=== PATIENT | female | born 1960 | race African-American/Black ===

== ENCOUNTER 2019-11-26 16:23 | Emergency (ER) | payer OTHER, BC ==
[2019-11-26 17:02] LABS: BASOPHILS % (AUTO) 0.3 %; EOSINOPHILS # (AUTO) 0.2 10^3/uL (0.0-0.7); EOSINOPHILS % (AUTO) 2.5 %; HGB - HEMOGLOBIN 12.8 g/dL (12.0-16.0); LYMPHOCYTES # (AUTO) 2.7 10^3/uL (1.5-3.5); LYMPHOCYTES % (AUTO) 37.3 %; MEAN CORPUSCULAR HEMOGLOBIN 25.9 pg (27.0-31.0); MEAN CORPUSCULAR HGB CONC 31.1 g/dL (32.0-36.0); MEAN CORPUSCULAR VOLUME 83.2 fL (81.0-99.0); MEAN PLATELET VOLUME 12.7 fL (7.9-10.8); MONOCYTES # (AUTO) 0.6 10^3/uL (0.0-1.0); MONOCYTES % (AUTO) 8.3 %; NEUTROPHILS # (AUTO) 3.7 10^3/uL (1.5-6.6); NEUTROPHILS % (AUTO) 51.5 %; PLT - PLATELET COUNT 186 10^3/uL (130-450); RED BLOOD COUNT 4.94 10^6/uL (4.20-5.40); RED CELL DISTRIBUTION WIDTH 15.3 % (12.0-15.0); WHITE BLOOD COUNT 7.1 x10^3/uL (4.8-10.8)
--- NOTE | 2019-11-26 17:09 | ED Physician Documentation ---
History of Present Illness - Stated complaint Stated Complaint: FALL/RT ELBOW INJURY - Chief complaint Chief Complaint: General - History obtained from History obtained from: Patient (59-year-old woman with history of hypertension was in her usual state of health at work today and potentially had a syncopal episode. She was potentially unconscious for about a minute. It was not preceded by chest pain or trouble breathing. She feels completely fine now except has mild left rib pain and mild right elbow pain. 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: Fibroids : None HEENT: Chronic vision loss Psych: Depression Musculoskeletal: None Derm: None - Past Surgical History Past Surgical History: Yes - Present Medications Home Medications: Ambulatory Orders Medication Instructions Recorded Confirmed Levothyroxine [Synthroid] 50 mcg PO QDAC 11/20/12 02/27/14 Simvastatin [Zocor] 40 mg PO QPM 11/20/12 02/27/14 Bupropion HCl [Wellbutrin] 150 mg PO BID 02/27/14 02/27/14 NIFEdipine [Procardia] 30 mg PO QID 02/27/14 02/27/14 Hydrocodone/Acetaminophen 1 - 2 each PO Q6H PRN #14 tablet 11/26/19 [Hydrocodon-Acetaminophen 5-325] - Allergies Allergies/Adverse Reactions: Allergies Allergy/AdvReac Type Severity Reaction Status Date / Time No Known Drug Allergies Allergy Verified 11/20/12 20:09 - Social History Does the pt smoke?: No Smoking Status: Never smoker Does the pt drink ETOH?: No Does the pt have substance abuse?: No - Immunizations Immunizations are current?: Yes PD ED PE NORMAL - Vitals Vital signs reviewed: Yes - General General: Alert and oriented X 3, No acute distress - HEENT HEENT: PERRL, EOMI - Neck Neck: Supple, no meningeal sign, No bony TTP - Cardiac Cardiac: RRR, No murmur - Respiratory Respiratory: No respiratory distress, Clear bilaterally - Back Back: No CVA TTP, No spinal TTP - Derm Derm: Normal color, Warm and dry - Extremities Extremities: No edema, No calf tenderness / cord, Other (She is focally tender and swollen over the right olecranon with full range of motion.) - Neuro Neuro: Alert and oriented X 3, Normal speech Results - Vitals Vitals: Vital Signs - 24 hr 11/26/19 11/26/19 16:36 17:01 Temperature 36.6 C Heart Rate 60 60 Respiratory 16 14 Rate Blood Pressure 149/81 H 164/78 H O2 Saturation 97 99 Oxygen O2 Source Room air - EKG (time done) 1649 Rate: Rate (enter#) (52) Rhythm: NSR [place]: Normal Intervals: Normal MD QRS: Normal Ischemia: Non specific changes (Flat T waves kind of diffusely). No: ST elevation c/w ischemia, ST depression Computer interpretation: Agree with computer - Labs Labs: Laboratory Tests 11/26/19 11/26/19 11/26/19 16:53 16:53 16:53 WBC 7.1 RBC 4.94 Hgb 12.8 Hct 41.1 MCV 83.2 MCH 25.9 L MCHC 31.1 L RDW 15.3 H Plt Count 186 MPV 12.7 H Neut # (Auto) 3.7 Lymph # (Auto) 2.7 [place] # (Auto) 0.6 Eos # (Auto) 0.2 Baso # (Auto) 0.0 Absolute Nucleated RBC 0.00 Nucleated RBC % 0.0 Sodium 140 Potassium 3.6 Chloride 104 Carbon Dioxide 27 Anion Gap 9.0 BUN 13 Creatinine 0.8 Estimated GFR (MDRD) 90 Glucose 99 Calcium 9.6 Total Bilirubin 0.7 AST 20 ALT 20 Alkaline Phosphatase 73 Troponin I High Sens < 2.3 L Total Protein 8.0 Albumin 4.2 Globulin 3.8 Albumin/Globulin Ratio 1.1 Lipase 25 PD MEDICAL DECISION MAKING - ED course ED course: 59-year-old woman presents with potential syncopal episode although she does not think she blacked out. From a syncope standpoint her work-up was negative. Chest and rib x-ray interpreted contemporaneously by me was negative, right elbow x-ray interpreted contemporaneously by me was suggestive of a radial head fracture and she did have increasing pain in that area during her stay so I suspect it is real. She was counseled on this diagnosis. Departure - Departure Disposition: 01 Home, Self Care Clinical Impression: Syncope Qualifiers: Syncope type: unspecified Qualified Code(s): R55 - Syncope and collapse Chest wall contusion Qualifiers: Encounter type: initial encounter Laterality: left Qualified Code(s): S20.212A - Contusion of left front wall of thorax, initial encounter Right radial head fracture Qualifiers: Encounter type: initial encounter Fracture type: closed Fracture alignment: nondisplaced Qualified Code(s): S52.124A - Nondisplaced fracture of head of right radius, initial encounter for closed fracture Condition: Good Record reviewed to determine appropriate education?: Yes Instructions: ED Contusion Rib, ED Fainting Unkn Cause Follow-Up: [facility] [Provider Group] Prescriptions: Hydrocodone/Acetaminophen [Hydrocodon-Acetaminophen 5-325] 1 - 2 each PO Q6H PRN #14 tablet PRN Reason: pain Comments: For the elbow fracture, wear the sling as needed and follow-up with the orthopedic surgeons within the week. Return for new or worsening symptoms. Do not drink or drive while taking the prescription pain medication, when pain is mild you can just take Tylenol. Follow-up with your primary care physician as well, next available appointment. Forms: Activity restrictions
[2019-11-26 17:17] LABS: ALBUMIN 4.2 g/dL (3.2-5.5); ALBUMIN/GLOBULIN RATIO 1.1 (1.0-2.2); BILIRUBIN,TOTAL 0.7 mg/dL (0.2-1.0); CALCIUM 9.6 mg/dL (8.5-10.3); CREATININE 0.8 mg/dL (0.4-1.0)
--- NOTE | 2019-11-26 18:05 | XRAY Report ---
Reason: elbow inj Procedure Date: 11/26/2019 Accession Number: [id number] / [id number] Procedure: XR - Elbow 3 View RT CPT Code: Final Report FULL RESULT: EXAM: RIGHT ELBOW RADIOGRAPHY EXAM DATE: 11/26/2019 05:51 PM. CLINICAL HISTORY: Elbow injury. COMPARISON: None. TECHNIQUE: 3 views. FINDINGS: Bones: No acute displaced fracture. Questionable lucency in the radial head seen only on the oblique image without definite cortical disruption or displacement. Joints: Normal alignment. Small elbow joint effusion. Soft Tissues: Moderate soft tissue swelling overlies the olecranon process. IMPRESSION: 1. Lucency without cortical disruption or displacement of the radial head may be artifactual or due to a nondisplaced fracture. Recommend follow-up radiographs in 10-14 days to document the presence or absence of a healing fracture. Alternatively, CT may be diagnostic. 2. Normal alignment. 3. Small effusion. RADIA
--- NOTE | 2019-11-26 18:06 | XRAY Report ---
Reason: rib inj Procedure Date: 11/26/2019 Accession Number: [id number] / [id number] Procedure: XR - Ribs w/PA Chest LT CPT Code: Final Report FULL RESULT: EXAM: LEFT RIB RADIOGRAPHY EXAM DATE: 11/26/2019 05:49 PM. CLINICAL HISTORY: Rib inj. COMPARISON: None. TECHNIQUE: 1 view of the chest and 2 views of the ribs. FINDINGS: Bones: Normal. No fracture or bone lesion. Lungs: No focal opacities. No pneumothorax. No pleural effusions. Mediastinum: Heart and mediastinal contours are unremarkable. Other: None. IMPRESSION: Normal chest and rib radiography. RADIA
[2019-11-26] MEDS ORDERED: HYDROcod/ACETAM 5/325 MG TABLET PO STA (18:12)
[2019-11-26 18:26] VITALS: BP 164/61
== END 2019-11-26 18:34 | disposition home or self-care (01) ==
LOC: ED 16:23
DX: R55 Syncope and collapse (principal); S52.124A Nondisplaced fracture of head of right radius, initial encounter for closed fracture; S20.212A Contusion of left front wall of thorax, initial encounter; W18.30XA Fall on same level, unspecified, initial encounter; Y99.0 Civilian activity done for income or pay; I10 Essential (primary) hypertension
CPT/HCPCS: 36415; 71101; 73080; 80053; 83690; 84484; 85025; 93005; 99284; A9270; 1040M

== ENCOUNTER 2020-08-16 10:27 | Outpatient (CLI) | payer BC ==
[2020-08-16 11:05] VITALS: BP 130/80
--- NOTE | 2020-08-16 11:05 | SLEEP CARE CONSULTATION ---
Information from patient questionnaire entered by Susan Dan. I have reviewed and concur with the information entered by Susan Dan. This document represents the service I personally performed and the decisions made by me, Leodan Flores MD, [facility]. History of Present Illness Service Date and Time: 08/16/2020 1027 Reason for Visit: New patient, Previously diagnosed sleep apnea (mild - AHI - 5.0 in 2015), sleep apnea on CPAP therapy, Re-establish care Chief Complaint: reports: Unrefreshed sleep, Other (breathing) Date of Onset: 6 months Usual bedtime: 10 pm Time it takes to fall asleep: 60 minutes or more Snores at night: Yes Observed to quit breathing while asleep: Yes Sleeps alone due to snoring: No Number of times waking at night: 4-6 Reasons for waking at night: reports: Choking, Snoring Toss, Turn, or Twitch while sleeping: Yes Recalls having dreams: Yes Usually gets out of bed at: 9-9:30 am Feels refreshed in the morning: No Morning headache: No Sleepy or fatigued during the day: Yes Ever fallen asleep while driving: No Takes day naps: No Dreams during day naps: No Prior sleep studies: Yes Year and Where: 2016 - [facility]; 2004 and 2007 - [facility] Type of Sleep Study: Polysomnography Additional HPI information: I had the pleasure of seeing Ms. Degroot today regarding obstructive sleep apnea-hypopnea. As you know, she is a 60 year old lady who was diagnosed with the sleep-disordered breathing here in 2014. The AHI was 5.0. She was prescribed a ResMed AirSense 10 autoCPAP device set at 6 12 cmH2O and later set to 8 10 cmH2O. She uses it almost every night and all night. The compliance data show usage in 151 out of the past 180 nights, averaging 6.2 hours a night. The > 4 hour compliance rate for the past 30 days is 73%. The residual AHI is 0.8 and average air leak is 0 L/minute. She wears a nasal mask. She got her supplies from [facility], but none in the past few years. She finds the treatment beneficial. - Parasomnia Symptoms Ever been unable to move upon waking from sleep: No Ever felt weak in the knees when startled or emotional: Yes Bothered by creepy, crawly, restless sensations in legs: No Problems with memory or concentration: Yes CPAP Compliance Data - Data Reviewed with Patient Average duration of nightly device use: 6 hr 9 min Compliance rate %: 73 (180 days) Current pressure setting (cmH2O): 8-10 Average residual AHI: 6.2 Subjective Initial [place] Sleepiness Scale score: 16 (in 2015) Current [place] Sleepiness Scale score: 12 Past Medical History Past Medical History: reports: Claustrophobia, Arthritis, Hypothyroidism, Anxiety Social History The patient's occupation is a [employer]. Patient is and lives in [place]. Have you smoked in the past 12 months: No Alcohol use: Yes Alcohol amount and frequency: every 3-4 weeks Caffeine use: Yes Caffeine amount and frequency: cup every morning Allergies and Home Medications Drug allergies reviewed: Yes Home medication list reviewed: Yes Review of Systems Cardiovascular: reports: palpitations Respiratory: reports: sputum production (?) Gastrointestinal: denies: heartburn, difficulty swallowing, nausea, vomitting, diarrhea, abdominal pain, other Urinary: denies: incontinence, frequency, urgency, impotence, other Neurological: denies: headaches, seizure, head trauma, disorientation, speech dysfunction, gait or balance problems, fainting or unconsciousness, other Psychiatric: reports: depression, mood disorder Ear/Nose/Throat: reports: wisdom teeth removed Endocrine: reports: thyroid disease, sluggishness Musculoskeletal: reports: joint pain Immunologic: denies: sneezing, rash, itching, allergies to food or environment, other Physical Exam Vital signs obtained and entered by: Leodan Flores M.D. Blood Pressure: 130/80 Cuff size: regular Heart Rate: 58 O2 Saturation: 96 Height: 5 ft 7 in Weight: 185 lb Body Mass Index: 29.0 BMI Classification: Overweight Impression and Plan IMPRESSION: 1. Obstructive Sleep Apnea-Hypopnea Syndrome, mild, as previously diagnosed. The patient has good CPAP compliance these past 5 years. The current pressure setting appears effective and comfortable. Because the CPAP is now older than the useful life of 5 years, I will order the patient a new one and make it an autoCPAP set between 8 and 10 cmH2O. Plan: 1. Prescription made for an autoCPAP, heated humidifier, and related supplies. 2. Try newer masks, e.g. Respironics DreamWear nasal cushion mask and ResMed N30i mask. 3. Avoid alcohol, sedative and muscle relaxant around bedtime. 4. Attempt to lose weight. 5. Return for follow up after one month on the new machine. Counseling Topics: Weight control Visit Type: In Office Time Spent with Patient (minutes): 15 Provider Statement: I spent 100% of the Face to Face Visit with the patient with greater than 50% spent counseling the patient and coordination of care.
== END 2020-08-16 10:28 | disposition home or self-care (01) ==
LOC: SC 10:27
PROVIDERS: ATTEND Internal Medicine Pulmonary Disease
DX: G47.33 Obstructive sleep apnea (adult) (pediatric) (principal); E66.3 Overweight; Z68.29 Body mass index [BMI] 29.0-29.9, adult
CPT/HCPCS: 99202; 99212

== ENCOUNTER 2020-11-25 20:38 | Emergency (ER) | payer BC, OTHER ==
[2020-11-25 21:01] LABS: BASOPHILS % (AUTO) 0.4 %; EOSINOPHILS # (AUTO) 0.2 10^3/uL (0.0-0.7); EOSINOPHILS % (AUTO) 1.9 %; HCT - HEMATOCRIT 41.7 % (37.0-47.0); LYMPHOCYTES # (AUTO) 3.7 10^3/uL (1.5-3.5); LYMPHOCYTES % (AUTO) 44.6 %; MEAN CORPUSCULAR HEMOGLOBIN 25.6 pg (27.0-31.0); MEAN CORPUSCULAR HGB CONC 31.2 g/dL (32.0-36.0); MEAN CORPUSCULAR VOLUME 82.2 fL (81.0-99.0); MEAN PLATELET VOLUME 12.5 fL (7.9-10.8); MONOCYTES # (AUTO) 0.5 10^3/uL (0.0-1.0); MONOCYTES % (AUTO) 5.6 %; NEUTROPHILS % (AUTO) 47.4 %; PLT - PLATELET COUNT 188 10^3/uL (130-450); RED BLOOD COUNT 5.07 10^6/uL (4.20-5.40); RED CELL DISTRIBUTION WIDTH 15.3 % (12.0-15.0); WHITE BLOOD COUNT 8.3 x10^3/uL (4.8-10.8)
--- OUTSIDE RECORDS SUMMARY | 2020-11-25 21:04 | EXTERNAL MEDICAL SUMMARY RPT | Continuity of Care Document ---
:1960 Demographics Phone Unavailable Preferred Language Unknown Marital Status Unknown Gnosticism Affiliation Unknown Race Unknown Ethnic Group Unknown Author Organization [facility] Address [address] [place] [address] Phone Allergies Encounters Medications Problems Results
[2020-11-25 21:17] LABS: ALBUMIN 4.2 g/dL (3.2-5.5); ALBUMIN/GLOBULIN RATIO 1.2 (1.0-2.2); BILIRUBIN,TOTAL 0.6 mg/dL (0.2-1.0); CALCIUM 9.7 mg/dL (8.5-10.3); CREATININE 0.9 mg/dL (0.4-1.0); POTASSIUM 3.6 mmol/L (3.5-5.0); TOTAL PROTEIN 7.6 g/dL (6.7-8.2)
--- NOTE | 2020-11-25 21:54 | XRAY Report ---
PROCEDURE: Chest 1 View X-Ray INDICATIONS: Chest pain TECHNIQUE: One view of the chest was acquired. COMPARISON: 11/20/2012 FINDINGS: Surgical changes and devices: None. Lungs and pleura: No pleural effusions or pneumothorax. Lungs are clear. Mediastinum: Mediastinal contours appear normal. Mild cardiomegaly Bones and chest wall: No suspicious bony lesions. Overlying soft tissues appear unremarkable. IMPRESSION: Mild cardiomegaly. No evidence acute pulmonary process. Reviewed by: Mustapha Bustamante MD on 11/25/2020 9:53 PM PDT Approved by: Mustapha Bustamante MD on 11/25/2020 9:53 PM PDT Station ID: [id number]
--- NOTE | 2020-11-25 23:18 | ED Physician Documentation ---
PD HPI CHEST PAIN - Stated complaint Stated Complaint: CP - Chief complaint Chief Complaint: Cardiac - History obtained from History obtained from: Patient, Family - Additional information Additional information: Patient sent to the emergency department by her primary care physician for episodes of chest pain that have been going on for a number of months. She states it feels like a cramp or stabbing pain that occurs in her left chest. Occasional shortness of breath. No nausea. No lightheadedness or diaphoresis. Patient states that the pain is there fairly constantly and is not really brought on by any specific activity, including exertion. Nothing really makes it go away, including Mylanta, which her doctor recommended. She states that the pain will wax and wane to some degree. Occasionally about she feels that the pain has been fairly consistent for the last 2 weeks. Pain is at a minimal level right now. Patient has had extensive cardiac work-up previously but did not include catheterization. This is always been negative, patient's states he does not understand why she continues to have the pain if "nothing is wrong". Patient has not had follow-up with cardiology, but has had stress test within the last few years that was negative. Patient states that she has no history of smoking. She does take medication for her blood pressure but is not a diabetic. Father had coronary artery disease in older years. Review of Systems Ten Systems: 10 systems reviewed and negative Constitutional: reports: Reviewed and negative Eyes: reports: Reviewed and negative Ears: reports: Reviewed and negative Nose: reports: Reviewed and negative Throat: reports: Reviewed and negative Cardiac: reports: Chest pain / pressure Respiratory: reports: Reviewed and negative GI: reports: Reviewed and negative : reports: Reviewed and negative Skin: reports: Reviewed and negative Musculoskeletal: reports: Reviewed and negative Neurologic: reports: Reviewed and negative Psychiatric: reports: Reviewed and negative Endocrine: reports: Reviewed and negative Immunocompromised: reports: Reviewed and negative PD PAST MEDICAL HISTORY - Past Medical History Cardiovascular: High cholesterol Respiratory: None Endocrine/Autoimmune: HyPOthyroidism GI: GERD 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 : None HEENT: Chronic vision loss Psych: Depression Musculoskeletal: None Derm: None - Past Surgical History Past Surgical History: Yes - Present Medications Home Medications: Ambulatory Orders Medication Instructions Recorded Confirmed Levothyroxine [Synthroid] 50 mcg PO QDAC 11/20/12 11/25/20 Bupropion HCl [Wellbutrin] 150 mg PO BID 02/27/14 11/25/20 Nitroglycerin [Nitrostat] 0.4 mg SL Q5MIN PRN #20 tablet 11/25/20 buPROPion [Wellbutrin Xl] 150 mg PO DAILY 11/25/20 11/25/20 - Allergies Allergies/Adverse Reactions: Allergies Allergy/AdvReac Type Severity Reaction Status Date / Time No Known Drug Allergies Allergy Verified 11/25/20 20:42 - Social History Does the pt smoke?: No Smoking Status: Never smoker Does the pt drink ETOH?: No Does the pt have substance abuse?: No - Immunizations Immunizations are current?: Yes PD ED PE NORMAL - Vitals Vital signs reviewed: Yes - General General: Alert and oriented X 3, No acute distress, Well developed/nourished - HEENT HEENT: Atraumatic, PERRL, EOMI, Moist mucous membranes - Neck Neck: Supple, no meningeal sign - Cardiac Cardiac: RRR, No murmur, Strong equal pulses - Respiratory Respiratory: No respiratory distress, Clear bilaterally - Abdomen Abdomen: Soft, Non tender, Non distended - Derm Derm: Normal color, Warm and dry, No rash - Extremities Extremities: No deformity, No edema, No calf tenderness / cord - Neuro Neuro: Alert and oriented X 3, 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, Normal speech, Other (Grossly normal) - Psych Psych: Normal mood, Normal affect Results - Vitals Vitals: Oxygen O2 Source Room air - EKG (time done) 2041 Rate: Rate (enter#) (55) Rhythm: NSR, Other (Occasional PACs) [place]: Normal Intervals: Normal SD QRS: Normal Ischemia: Normal ST segments, Non specific changes Compare to prior EKG: Old EKG unavailable - Labs Labs: Laboratory Tests 11/25/20 11/25/20 11/25/20 20:53 20:53 20:53 WBC 8.3 RBC 5.07 Hgb 13.0 Hct 41.7 MCV 82.2 MCH 25.6 L MCHC 31.2 L RDW 15.3 H Plt Count 188 MPV 12.5 H Neut # (Auto) 4.0 Lymph # (Auto) 3.7 H [place] # (Auto) 0.5 Eos # (Auto) 0.2 Baso # (Auto) 0.0 Absolute Nucleated RBC 0.00 Nucleated RBC % 0.0 Sodium 140 Potassium 3.6 Chloride 102 Carbon Dioxide 31 Anion Gap 7.0 BUN 16 Creatinine 0.9 Estimated GFR (MDRD) 78 L Glucose 101 H Calcium 9.7 Total Bilirubin 0.6 AST 20 ALT 21 Alkaline Phosphatase 67 Troponin I High Sens < 2.3 L Total Protein 7.6 Albumin 4.2 Globulin 3.4 Albumin/Globulin Ratio 1.2 Lipase 26 PD MEDICAL DECISION MAKING - ED course Complexity details: reviewed results, re-evaluated patient, considered differential, d/w patient ED course: IntakeThe patient was worked up with labs AGA, though it did sound like this pain had been going on for some time. Troponin was negative as was the rest of the work-up. I spoke at length with the patient and her regarding the symptoms. I am not sure exactly what is causing patient's chest pain but perhaps she would be best served by a referral to cardiology and potentially, given her family history, a diagnostic angiogram. I have given the patient information for cardiology clinic at [facility] and have discussed with her that she should call them first thing in the morning. The clinic may require a referral from her primary care physician in which case she will need to speak with her primary to get this set up. There is no evidence of an acute coronary syndrome at this time. We have discussed the patient should have a low threshold for return, should her pain ramp up or become concerning in any way. I have given them prescribed patient a prescription for nitroglycerin, which she may use and see if this is helpful for her symptoms. Departure - Departure Disposition: 01 Home, Self Care Clinical Impression: Chest pain Qualifiers: Chest pain type: unspecified Qualified Code(s): R07.9 - Chest pain, unspecified Condition: Stable Instructions: ED Chest Pain Atypical Unkn Cause Follow-Up: Rahul Vega MD [Physician No Access] - Marcus Zhang MD [Physician No Access] - Carin Riley MD [Physician No Access] - Prescriptions: Nitroglycerin [Nitrostat] 0.4 mg SL Q5MIN PRN #20 tablet PRN Reason: Chest Pain Comments: All of your labs look good tonight, and there is no evidence of a "heart attack" in recent days. The cardiac enzymes that are released from the damaged heart muscle during a heart attack stay elevated for at least several days to a week after such an event, and your levels were normal today. It is not clear what exactly is causing the chest pain that has been going on for some months now. This may be due to incomplete blockages of your arteries, or it may be due to something that has nothing to do with your heart. No evidence of an emergent condition has been found tonight. What is most likely to be helpful in your case is a repeat stress test and a visit with a clinical appeals rn to discuss the possibility of a diagnostic angiogram. If you develop severe chest pain and shortness of breath, please return to the emergency department immediately. Discharge Date/Time: 11/25/20 23:27
[2020-11-25 23:28] VITALS: BP 142/76
== END 2020-11-25 23:27 | disposition home or self-care (01) ==
LOC: ED 20:38
DX: R07.9 Chest pain, unspecified (principal); I49.1 Atrial premature depolarization; I10 Essential (primary) hypertension; Z82.49 Family history of ischemic heart disease and other diseases of the circulatory system
CPT/HCPCS: 36415; 80053; 83690; 84484; 85025; 93005; 99284

== ENCOUNTER 2021-08-11 08:00 | Outpatient (CLI) | payer OTHER | END 2021-08-11 23:59 | disposition home or self-care (01) | LOC: LAB.N 08:00 | PROVIDERS: ATTEND Emergency Medicine | DX: U07.1 COVID-19 (principal) ==